=== PATIENT | female | born 1930 | race Caucasian/White ===

== ENCOUNTER 2018-05-13 04:19 | Emergency (ER) | payer OTHER ==
[~2018-05-13] VITALS: Ht 160 cm; Wt 76.4 kg
[~2018-05-13 04:19] MED LIST: ADVAIR 250/501 DISK IH; ASPIR 8181 M1 PO; ATORVASTATIN CA40 MG PO; Advair 250/50 Diskus IH; Advair HFA 115/21 IH; Ascorbic Acid,Ester- PO; Aspirin PO; BACTRIM,SEPT1 TABLET PO; COMBIVENT RESPIM4 GM IH; Colace PO; Coumadin Protocol PO; Cozaar PO; DAILY VITE1 EAC1 PO; Dulcolax PO; ENDOCET 5-3251 EACH PO; FISH OIL300 MG PO; FUROSEMIDE20 MG PO; Folvite PO; Glucophage PO; LEVEMIR FL100 UNIT/1 SC; LEVOTHYROXINE25 MCG PO; LOSARTAN POTASS50 MG PO; Levothroid,Synthroid PO; Lipitor PO; Lopressor PO; METFORMIN HCL500 MG PO; METOPROLOL TART50 MG PO; Miralax, Glycolax PO; Norvasc PO; PRESERVISION T1 EACH PO; PROTONIX40 MG PO; Plendil PO; Senokot,Sennagen PO; TIZANIDINE HCL2 M1 PO; TYLENOL REGULA325 MG PO; Theragran PO; VITAMIN B-650 MG PO; oxyCODONE PO; predniSONE PO
[2018-05-13 04:48] LABS: BASOPHIL (%) 0.6 % (0-1); BASOPHIL COUNT 0.1 K/uL (0-0.1); EOSINOPHIL (%) 5.6 % (0-5); EOSINOPHIL COUNT 0.5 K/uL (0-0.3); HEMATOCRIT 37.6 % (36.0-46.0); IMMATURE GRANULOCYTE (%) 0.4 % (0.0-0.7); LYMPHOCYTE (%) 24.4 % (15-42); LYMPHOCYTE COUNT 2.3 K/uL (1.0-2.8); MCH 33.6 PG (29.0-34.0); MCHC 34.6 G/DL (30.0-36.0); MCV 97.2 FL (83-99); MONOCYTE (%) 12.6 % (3-12); MONOCYTE COUNT 1.2 K/uL (0-0.8); NEUTROPHIL (%) 56.4 % (45-76); NEUTROPHIL COUNT 5.4 K/uL (1.8-6.4); PLATELET COUNT 276 K/uL (156-360); RBC DIS.WIDTH-CV 13.2 % (11.8-14.6); RED BLOOD COUNT 3.87 M/uL (3.80-5.20); WHITE BLOOD COUNT 9.6 K/uL (4.1-10.2)
[2018-05-13 04:56] LABS: ALBUMIN 3.9 g/dL (3.2-4.8); CHLORIDE 103 mEq/L (99-109); POTASSIUM 4.8 mEq/L (3.7-5.4); SODIUM 139 mEq/L (136-147)
[2018-05-13 04:58] LABS: APPEARANCE CLEAR ((CLEAR)); BILIRUBIN NEGATIVE; BLOOD NEGATIVE; COLOR STRAW ((YELLOW)); GLUCOSE (STRIP) NEGATIVE; KETONES NEGATIVE; LEUKOCYTES NEGATIVE; NITRITE NEGATIVE; PROTEIN (STRIP) NEGATIVE; SPECIFIC GRAVITY 1.008 (1.000-1.030); UCUL ADDED? NO; UROBILINOGEN 0.2 MG/DL (0.2-1.0)
[2018-05-13 04:58] LABS: GLUCOSE 153 mg/dL (70-99); TOTAL PROTEIN 7.5 g/dL (6.4-8.3)
[2018-05-13 05:00] LABS: TOTAL BILIRUBIN 0.7 mg/dL (0.0-1.0)
[2018-05-13 05:02] LABS: ALKALINE PHOSPHATASE 105 IU/L (3-129); CREATININE 1.7 mg/dL (0.6-1.3); GFR ESTIMATE (CALCULATED) 30 mL/min/
[2018-05-13 05:03] LABS: UREA NITROGEN (BUN) 24 mg/dL (9-23)
[2018-05-13 05:04] LABS: AST (GOT) 18 IU/L (2-34)
[2018-05-13 05:05] LABS: ALT (GPT) 20 IU/L (3-49); LIPASE 45 U/L (1.0-51.0)
[2018-05-13 05:11] LABS: TROP-I INTERPRETATION NEGATIVE; TROPONIN-I < 0.01 ng/mL (0.0-0.30)
[2018-05-13 07:50] LABS: TROP-I INTERPRETATION NEGATIVE; TROPONIN-I < 0.01 ng/mL (0.0-0.30)
[2018-05-13 08:16] VITALS: BP 119/64
== END 2018-05-13 08:16 | disposition home or self-care (01) ==
LOC: EME 04:19
PROVIDERS: Emergency Medicine
DX: R10.13 Epigastric pain (principal); R10.11 Right upper quadrant pain; R10.12 Left upper quadrant pain; N28.9 Disorder of kidney and ureter, unspecified; R45.1 Restlessness and agitation; R06.02 Shortness of breath; R94.31 Abnormal electrocardiogram [ECG] [EKG]; K57.30 Diverticulosis of large intestine without perforation or abscess without bleeding; K44.9 Diaphragmatic hernia without obstruction or gangrene; N20.0 Calculus of kidney; J98.11 Atelectasis; M51.37 Other intervertebral disc degeneration, lumbosacral region; I10 Essential (primary) hypertension; E78.5 Hyperlipidemia, unspecified; J44.9 Chronic obstructive pulmonary disease, unspecified; Z95.1 Presence of aortocoronary bypass graft; Z79.82 Long term (current) use of aspirin; Z87.891 Personal history of nicotine dependence
CPT/HCPCS: 71045; 74176; 80053; 81003; 83690; 84484; 85025; 93005; 99281; 99284